=== PATIENT | female | born 1950 | race Caucasian/White ===

== ENCOUNTER 2016-12-22 17:03 | Emergency (ER) | payer BC ==
[2016-12-22 17:20] VITALS: BP 132/77; PULSE 61; TEMP 36.8; O2SAT 98; Ht 162.6 cm
--- NOTE | 2016-12-22 18:35 | DIAGNOSTIC IMAGING REPORT ---
RIGHT KNEE 3 VIEWS CLINICAL HISTORY: Right knee pain status post trauma COMPARISON: None. DISCUSSION: There is a subtle patellar lucency as visualized in the lateral view. A nondisplaced fracture through the inferior patellar pole cannot be excluded. Please correlate with the patient's site of pain. CT scanning could be obtained in follow-up as deemed clinically indicated. No fractures the distal femur proximal tibia or proximal fibula are visualized. There are mild osteoarthritic changes. IMPRESSION: Equivocal nondisplaced patellar fracture. Please correlate with the patient's site of pain Electronically signed by: Nilo Izaguirre M.D. 12/22/2016 6:34 PM Dictated Date/Time: 12/22/2016 6:32 PM
--- NOTE | 2016-12-22 18:50 | EMERGENCY ROOM VISIT NOTE ---
ED Visit Note First contact with patient: 17:32 This Patient was discussed with the physician administrative assistant data entry, William Salomon PA-C. The pertinent historical and physical exam findings were confirmed. I agree with the studies ordered and with the interpretations of these studies. I agree with the disposition and care plan.
[2016-12-22] MEDS ORDERED: CALC-574 PO (18:51)
[2016-12-22] MEDS ORDERED: CITA40TA4 PO (18:51)
[2016-12-22] MEDS ORDERED: CYCL10TA6 PO (18:52)
[2016-12-22] MEDS ORDERED: DIAZ-165 PO (18:54)
[2016-12-22] MEDS ORDERED: LEVO100T7 PO (18:55)
[2016-12-22] MEDS ORDERED: LISI-461 PO (18:56)
[2016-12-22] MEDS ORDERED: GLC/500 PO (18:56)
[2016-12-22] MEDS ORDERED: OMEG10007 PO (18:57)
[2016-12-22] MEDS ORDERED: PROP80CA PO (18:59)
[2016-12-22] MEDS ORDERED: SIMV20TA2 PO (19:00)
[2016-12-22] MEDS ORDERED: NORCO 5/325MG HOME PACK PO ONE (19:00)
[2016-12-22] MEDS ORDERED: ZINC25CA PO (19:02)
[2016-12-22] MEDS ORDERED: HYDR-5688 PO (19:10)
--- NOTE | 2016-12-23 20:44 | EMERGENCY ROOM VISIT NOTE ---
ED Visit Note First contact with patient: 17:32 Chief Complaint: Right knee pain. History of Present Illness: Ms. Rushing is a 66-year-old white female who is brought into the ED via wheelchair accompanied by female friend complaining of left anterior knee pain. Patient reports approximately 1.5 hours ago she lost her footing while she was exiting a bus and fell onto her knees and left elbow. She reports before the fall there was no lightheadedness or dizziness, at the time of the fall she did not strike her head or have loss of consciousness and since the fall she has had no signs of head injury. Currently complaining at this time is of right anterior knee pain. She describes it as an achy sensation at rest that becomes sharp with the last few degrees of extension and palpation. She has not identified any alleviating factors related to the pain. She has not taken any medications for pain prior to arrival at the hospital. Overall she rates her discomfort 4/10. Her pain is nonradiating. She denies any associated symptoms including back pain, hip pain, thigh pain, lower leg pain, ankle pain, foot pain, leg weakness/numbness/ tingling. She denies any previous significant injuries or surgeries to the right knee. I did question her about her left knee and elbow and she reports she is having no pain and has had no difficulty flexing and extending these joints. Review of Systems: As noted above in history of present illness. 8 body systems were reviewed and found to be negative as noted above. Past Medical History: Diabetes, hypertension, status post venous stripping, sterilization, contact removal. Current Medications: Medications Dose Route/Sig Max Daily Dose Days Date Category Dose Instructions Galzin (Zinc Acetate (Oral)) 25 Mg Cap 25 Mg PO DAILY 12/22/16 Reported Zocor (Simvastatin) 20 Mg Tab 20 Mg PO QPM 12/22/16 Reported Propranolol Hcl Er (Propranolol Hcl) 80 Mg Cap 1 Cap PO BID 12/22/16 Reported [place]-3 (Fish Oil) 1 Ea Cap 1 Cap PO DAILY 12/22/16 Reported Glucophage (Metformin Hcl) 500 Mg Tab 500 Mg PO DAILY 12/22/16 Reported Zestril (Lisinopril) 10 Mg Tab 10 Mg PO DAILY 12/22/16 Reported Levothyroxine Sodium 100 Mcg Tab 100 Mcg PO DAILY 12/22/16 Reported Valium (Diazepam) 5 Mg Tab 5 Mg PO TID PRN 12/22/16 Reported Flexeril (Cyclobenzaprine Hcl) 10 Mg Tab 10 Mg PO TID PRN 12/22/16 Reported Citalopram Hydrobromide (Citalopram) 40 Mg Tab 40 Mg PO DAILY 12/22/16 Reported Calcium 600+D3 600-400 mg-Unit (Calcium Carbonate-Cholecalcife) 1 Tab Tab 1 Tab PO DAILY 12/22/16 Reported Allergies to Medications: Tramadol. Social History: Patient is currently retired; she lives by herself and feels safe in her home environment; she denies tobacco use and admits to social alcohol use. Physical Examination: Vital Signs: Date Time Temp Pulse Resp B/P Pulse Ox O2 Delivery O2 Flow Rate FiO2 12/22/16 17:20 36.8 61 17 132/77 98 Room Air GENERAL: 66-year-old female in mild distress due to pain, nontoxic-appearing, afebrile and hemodynamically stable. NEUROLOGICAL: Awake, alert and oriented to person, place and time. Answering questions appropriately and following commands. Good hand eye coordination. No focal motor sensory deficits. Short-term and long-term recall. Cranial nerves II through XII grossly intact. SKIN: Warm, dry and pink. Superficial abrasions were noted over the anterior left elbow and left knee with no active bleeding. HEENT: Atraumatic and normocephalic. PERRLA. No drainage from naris. Oral cavity moist and pink. Airway patent. Speech normal. Trachea midline. No jugular venous distention. BACK: No tenderness over the bony cervical, thoracic and lumbar spine. LEFT UPPER EXTREMITY: No gross bony deformity. Soft tissue injury as noted above. No tenderness in the shoulder, upper arm, elbow, forearm or wrist. Full range of motion in flexion and extension of the elbow and pronation and supination of the forearm. Distal pulses and sensations are intact. Capillary refill is brisk. RIGHT LOWER EXTREMITY: No gross bony deformity. No tenderness in the hip, thigh , lower leg, ankle or foot. Moderate tenderness over the patella. Positive patellar apprehension test. Negative ballottement test. No laxity of the collateral and cruciate ligaments. No joint line tenderness. Decreased range of motion the last few degrees of extension and almost near full flexion. Full range of motion in plantar flexion and dorsiflexion of the ankle. Distal pulses and sensations are intact. Capillary refill was brisk. ED Course: Patient is assessed as noted above. Patient is given ice for pain and comfort; she refused pain medications multiple times. Right Knee X-Rays: Were read by myself and the radiologist and shows a nondisplaced patellar fracture without joint effusion. Radiologist also noted mild osteoarthritic changes. Patient was placed in a knee immobilizer and was able to ambulate with nonweightbearing crutches. Patient's case was reviewed with Dr. Blackman; he came in independently assessed the patient and we agreed on diagnostic approach, treatment, disposition and plan. Patient was educated about tonight's findings and instructed on her treatment plan; she verbalized understanding and agreement with this plan. Clinical Impression: Right patella fracture. Superficial abrasions to the left elbow and left knee. Status post fall. Disposition: Patient discharged home in stable condition accompanied by female friends; prior to departure she was reassessed and subjectively reported she was feeling the same and rated her discomfort 4/10. Plan: Comfort measures were discussed with the patient including rest, ice, elevation , knee immobilizer and crutch use and a sliding pain medication scale of ibuprofen, acetaminophen and Electra; she was given appropriate precautions for use of narcotics. Wound care and signs of infection were discussed with the patient. Patient was encouraged to follow-up with Dr. Gold of [facility] for her knee fracture. Patient was encouraged to follow-up with her family physician or return to the ED for signs of infection or any worsening knee pain or any new/concerning symptoms.
== END 2016-12-22 20:05 | disposition home or self-care (01) ==
LOC: C.EDB 17:07 → C.EDD 20:05
DX: S82.001A Unspecified fracture of right patella, initial encounter for closed fracture (principal); S50.312A Abrasion of left elbow, initial encounter; S80.212A Abrasion, left knee, initial encounter; W10.9XXA Fall (on) (from) unspecified stairs and steps, initial encounter; Y92.811 Bus as the place of occurrence of the external cause; E11.9 Type 2 diabetes mellitus without complications; I10 Essential (primary) hypertension; Z79.899 Other long term (current) drug therapy